=== PATIENT | female | born 1985 | race Caucasian/White ===

== ENCOUNTER 2024-03-14 19:38 | Emergency (ER) | payer MEDICAID ==
[2024-03-14] MEDS: Ketorolac 30 MG/ML SDV IM ONE (20:38)
[2024-03-14] MEDS: Bacitracin Oint 1 GM U/D Packet TOP ONE (21:10)
== END 2024-03-14 21:35 | disposition home or self-care (01) ==
LOC: JP.ED 19:38
DX: S61.531A Puncture wound without foreign body of right wrist, initial encounter (principal); S61.532A Puncture wound without foreign body of left wrist, initial encounter; Z88.8 Allergy status to other drugs, medicaments and biological substances; W54.0XXA Bitten by dog, initial encounter
CPT/HCPCS: 96372; 99283; J1885